=== PATIENT | male | born 1950 | race Caucasian/White ===

== ENCOUNTER 2020-05-11 20:23 | Observation (INO) | payer MEDICARE, OTHER ==
[2020-05-11 20:57] LABS: #Basophils 0.1 thou/uL (0.0-0.2); #Eosinphils 0.1 thou/uL (0.0-0.7); #Monocytes 0.7 thou/uL (0.11-0.59); #Neutrophils 5.2 thou/uL (1.40-6.50); %Basophils 0.8 % (0.0-1.0); %Eosinophils 1.5 % (0.0-10.0); %Monocytes 8.9 % (0.0-10.0); %Neutrophils 63.8 % (42.0-75.0); Hemoglobin 14.3 g/dL (14.0-18.0); Mean Corpuscular HGB CONC 32.4 g/dL (32.0-36.0); Mean Corpuscular Hemoglobin 34.1 pg (27.0-31.0); Mean Platelet Volume 6.9 fL (7.4-10.4); Platelet Count 238 thou/uL (130-400); RBC Distribution Width 11.3 % (11.5-14.5); Red Blood Cell (RBC) Count 4.18 mill/uL (4.70-6.10); White Blood Cell (WBC) Count 8.1 thou/uL (4.8-10.8)
--- NOTE | 2020-05-11 20:57 | RAD ---
PORTABLE CHEST: Date: 05/11/2020 HISTORY: Chest pain. COMPARISON: Chest film from 2012. FINDINGS: The lungs appear clear. No infiltrate. Vascular markings normal. Heart size within normal range. IMPRESSION: No acute lung process. POS: AGW
[2020-05-11 21:17] LABS: ALT (SGPT) 20 U/L (8-55); AST (SGOT) 23 U/L (5-34); Albumin 3.9 g/dL (3.4-4.8); Alkaline Phosphatase 64 U/L (40-110); Anion Gap 14 mmol/L (10-20); BUN (Urea Nitrogen) 13 mg/dL (8.4-25.7); Bilirubin, Total 0.5 mg/dL (0.2-1.2); CK (CPK) 138 U/L (30-200); Calc. Creatinine Clearance 0 mL/min (70-130); Calcium 8.8 mg/dL (7.8-10.44); Carbon Dioxide 25 mmol/L (23-31); Chloride 102 mmol/L (98-107); Estimated GFR-MDRD 83; Glucose 131 mg/dL (80-115); Potassium 3.8 mmol/L (3.5-5.1); Protein, Total 6.9 g/dL (5.8-8.1); Sodium 137 mmol/L (136-145)
[2020-05-11 21:44] LABS: CKMB 3.3 ng/mL (0-6.6)
[2020-05-12 00:22] VITALS: BMI 27.1
[2020-05-12] MEDS ORDERED: Nitroglycerin 0.4 MG TAB (25 Tab Bottle) SL PRN (01:24)
[2020-05-12] MEDS ORDERED: Acetaminophen 650 MG Suppository PR PRN (01:26)
[2020-05-12] MEDS ORDERED: Acetaminophen 325 MG TAB PO PRN (01:26)
[2020-05-12] MEDS ORDERED: Lidocaine 2% Viscous Solution 10 ML, Aluminum & Magnesium Hydroxide 30 ML SSW SCH (01:30)
--- NOTE | 2020-05-12 01:54 | PDOC.HHP ---
Hospitalist HPI - History of Present Illness History of Present Illness: ADMISSION DATE: 05/12/2020 TIME OF ASSESSMENT: 100 PRIMARY CARE PHYSICIAN: None CHIEF COMPLAINT: Chest pain HPI: Patient presents to the emergency department with complaints of chest pain that started yesterday evening around 5:30 PM while he was outside throwing a Frisbee with his daughter. Reports being fairly active at baseline and has n ever experienced any exertional chest pain in the past nor chest pain with rest. He has been under a lot of stress with work but has been working from home for the last 9 months. He has not been exercising as much as he used to since being in quarantine at home. Reports the pain was in the center of his chest described as a throbbing pain which was a 4 out of 10 in severity and lasted approximately 2 hours. It was nonradiating. Denies any associated nausea vomiting or diaphoresis. Shortness of breath, cough or hemoptysis. The pain had subsided after he was given nitroglycerin by EMS. Denies having any history of [place]. He had a stress test several years ago which was normal. At present he reports having mild discomfort which he rates a 2 out of 10 in severity. States he noticed having chest pain whenever he would walk to the bathroom while he was in the ER but it would ease once he would rest. Has not had this in the past. ROS: Patient denies having any recent fevers chills or sweats. No abdominal pain nausea or vomiting. No lower extremity swelling or calf tenderness. Has not had any trauma or injuries. No heavy lifting. No long car rides or flights. All other review of systems apart from what is mentioned above are negative. ED COURSE: In the emergency department he had an EKG done that showed a normal sinus rhythm with a heart rate of 70. No ST changes or T wave abnormalities present. He had a chest x-ray done which was unremarkable. Laboratory studies were notable for an elevated troponin of 0.091. White count 8.1, hemoglobin 14.3, platelets 238, neutrophils 63.8%. Sodium 137, BUN 13, creatinine 0.91, GFR 83, potassium 3.8, glucose 131, calcium 8.8, LFTs unremarkable. BNP 29.6. He was given 324 mg of aspirin by EMS. No further medications given in the emergency department. PAST MEDICAL HISTORY: 1. Hypertension 2. Anxiety 3. Hyperlipidemia 4. History of glomerular nephritis at age 11. PAST SURGICAL HISTORY: None SOCIAL HISTORY: Patient denies any tobacco use or alcohol consumption. He reports drinking 2 glasses of red wine every night. FAMILY HISTORY: Noncontributory. ALLERGIES: Ibuprofen CURRENT MEDICATIONS: 1. Metoprolol 2. Co-Q10 3. Aspirin - Exam General Appearance: NAD, awake alert General - other findings: VS: Temp 97.7, HR 72, BP 170/94, RR 18, O2 sat 96% on room air Eye: PERRL, anicteric sclera ENT: normocephalic atraumatic, no oropharyngeal lesions, moist mucosa Neck: supple, no lymphadenopathy Heart: RRR, no murmur, no gallops, no rubs, normal peripheral pulses Respiratory: CTAB, no wheezes, no rales, no ronchi, normal chest expansion, no tachypnea Respiratory - other findings: no tenderness to palpation of chest wall Gastrointestinal: soft, non-tender, non-distended, normal bowel sounds, no guarding, no rigidity Extremities: no cyanosis, no clubbing, no edema Skin: normal turgor, no lesions, no rashes Neurological: cranial nerve grossly intact, normal sensation to touch, no weakness, no focal deficits Musculoskeletal: normal tone, normal strength, no muscle wasting Psychiatric: normal affect, normal behavior, A&O x 3 Hospitalist Results - Labs Result Diagrams: 05/11/20 20:46 05/11/20 20:46 Lab results: WBC 8.1 thou/uL (4.8-10.8) 05/11/20 20:46 Hgb 14.3 g/dL (14.0-18.0) 05/11/20 20:46 Hct 44.1 % (42.0-52.0) 05/11/20 20:46 MCV 106.0 fL (78.0-98.0) H 05/11/20 20:46 Plt Count 238 thou/uL (130-400) 05/11/20 20:46 Neutrophils % 63.8 % (42.0-75.0) 05/11/20 20:46 Sodium 137 mmol/L (136-145) 05/11/20 20:46 Potassium 3.8 mmol/L (3.5-5.1) 05/11/20 20:46 Chloride 102 mmol/L (98-107) 05/11/20 20:46 Carbon Dioxide 25 mmol/L (23-31) 05/11/20 20:46 BUN 13 mg/dL (8.4-25.7) 05/11/20 20:46 Creatinine 0.91 mg/dL (0.7-1.3) 05/11/20 20:46 Glucose 131 mg/dL (80-115) H 05/11/20 20:46 Calcium 8.8 mg/dL (7.8-10.44) 05/11/20 20:46 Total Bilirubin 0.5 mg/dL (0.2-1.2) 05/11/20 20:46 AST 23 U/L (5-34) 05/11/20 20:46 ALT 20 U/L (8-55) 05/11/20 20:46 Alkaline Phosphatase 64 U/L (40-110) 05/11/20 20:46 Creatine Kinase 138 U/L (30-200) 05/11/20 20:46 CK-MB (CK-2) 3.3 ng/mL (0-6.6) 05/11/20 20:46 Troponin I 0.091 ng/mL (< 0.028) H 05/11/20 20:46 B-Natriuretic Peptide 29.6 pg/mL (0-100) 05/11/20 20:46 Serum Total Protein 6.9 g/dL (5.8-8.1) 05/11/20 20:46 Albumin 3.9 g/dL (3.4-4.8) 05/11/20 20:46 - Radiology Interpretation Chest x-ray Status: report reviewed by nh Hospitalist H&P A/P - Problem (1) Chest pain Code(s): R07.9 - CHEST PAIN, UNSPECIFIED Status: Acute Assessment and Plan: Elevated troponin, continue to trend Continue cardiac monitoring Nitro prn for pain Cardiology consult Keep NPO Lipid panel with AM labs Continue statin and Aspirin Check TSH and d-dimer (2) Hypertension Code(s): I10 - ESSENTIAL (PRIMARY) HYPERTENSION Status: Chronic Assessment and Plan: Monitor BP Resume home meds as appropriate once verified. (3) Hyperlipidemia Code(s): E78.5 - HYPERLIPIDEMIA, UNSPECIFIED Status: Chronic Assessment and Plan: Check lipid panel with AM labs. (4) Anxiety Code(s): F41.9 - ANXIETY DISORDER, UNSPECIFIED Status: Chronic Assessment and Plan: Xanax 0.5 mg PO x 1 - Plan Plan: FULL CODE STATUS DVT Prophylaxis: patient is ambulatory GI Prophylaxis: Famotidine 20 mg PO BID Case discussed with Dr. Forman who agrees with plan as above.
[2020-05-12] MEDS: Sodium Chloride 0.9% 1,000 ML IV SCH ×2 (02:02→17:02)
[2020-05-12 04:28] LABS: #Basophils 0.1 thou/uL (0.0-0.2); #Eosinphils 0.1 thou/uL (0.0-0.7); #Monocytes 0.7 thou/uL (0.11-0.59); #Neutrophils 4.7 thou/uL (1.40-6.50); %Basophils 0.8 % (0.0-1.0); %Eosinophils 0.9 % (0.0-10.0); %Lymphocytes 26.9 % (21.0-51.0); %Monocytes 8.8 % (0.0-10.0); %Neutrophils 62.7 % (42.0-75.0); Hemoglobin 14.9 g/dL (14.0-18.0); Mean Corpuscular HGB CONC 34.7 g/dL (32.0-36.0); Mean Corpuscular Hemoglobin 36.6 pg (27.0-31.0); Platelet Count 216 thou/uL (130-400); RBC Distribution Width 11.3 % (11.5-14.5); Red Blood Cell (RBC) Count 4.08 mill/uL (4.70-6.10); White Blood Cell (WBC) Count 7.5 thou/uL (4.8-10.8)
[2020-05-12 04:51] LABS: Anion Gap 10 mmol/L (10-20); BUN (Urea Nitrogen) 9 mg/dL (8.4-25.7); Calc. Creatinine Clearance 108 mL/min (70-130); Calcium 9.2 mg/dL (7.8-10.44); Carbon Dioxide 29 mmol/L (23-31); Cardiac Risk 4.1 (Less than 4.5); Chloride 104 mmol/L (98-107); Cholesterol 203 mg/dl (< 200 Desired); Estimated GFR-MDRD 90; Glucose 122 mg/dL (80-115); HDL Cholesterol 50 mg/dL (>60 Neg Risk); LDL Cholesterol, Calculated 136 mg/dL; Potassium 3.8 mmol/L (3.5-5.1); Sodium 139 mmol/L (136-145); Triglycerides 86 mg/dL (Less than 150)
[2020-05-12 05:10] LABS: CKMB 3.8 ng/mL (0-6.6)
[2020-05-12] MEDS ORDERED: Aspirin 325 mg Enteric Coated Tablet PO SCH (09:00)
[2020-05-12] MEDS ORDERED: Famotidine 20 MG TAB PO SCH (09:00)
[2020-05-12 13:17] VITALS: TEMP 98
--- NOTE | 2020-05-12 13:45 | NM ---
Radionucleotide stress and rest myocardial perfusion scan with CT attenuation correction and SPECT im aging Left ventricular wall motion evaluation and ejection fraction HISTORY: Chest pain. FINDINGS: [facility] protocol. Total test time 7:00. Maximum heart rate 139 bpm. Homogeneous uptake of radiotracer throughout the left ventricular myocardium. No focal perfusion defe ct or reversibility. QGS analysis of gated SPECT images shows no focal wall motion abnormality. LHR 39%. T.i.d. 0.96. QGS analysis of gated SPECT images shows no focal wall motion abnormalities. Ejection fraction calcul ated at greater than 80%. IMPRESSION : No evidence of ischemia. Normal LVEF.
[2020-05-12 16:15] VITALS: BP 137/83
--- NOTE | 2020-05-12 16:33 | PDOC.DS.DS ---
Provider - Provider Date of Admission: 05/11/20 21:56 Admitting Provider: Korina Lees MD Primary Care Physician: NO PCP PROVIDER Course - Hospital Course Hospital Course: Patient presented with chest pain - please see the history and physical for more details. Troponin I 0.08 and 093. He went through a nuclear medicine stress test and it showed no evidence of ischemia and normal left ventricular ejection fraction. Is calculated around 80%. LDL is 136. Patient does not seem to have a home regimen of Lipitor. prescription given for the same. He does take aspirin every other day. Recommended to take it daily. He is cleared by the cardiology to be discharged home today. Resuscitation Status: 05/12/20 01:26 Resuscitation Status Routine Co-Sign Provider: Resuscitation Status: FULL: Full Resuscitation - Labs Lab Results: 05/12/20 04:12 05/12/20 04:12 Abnormal Lab Results - Last 48 hrs 05/11/20 20:46: Troponin I 0.091 H 05/11/20 20:46: RBC 4.18 L, MCV 106.0 H, MCH 34.1 H, RDW 11.3 L, MPV 6.9 L, Monocytes # 0.7 H 05/12/20 00:53: Troponin I 0.080 H 05/12/20 04:12: Troponin I 0.093 H 05/12/20 04:12: Cholesterol 203 H 05/12/20 04:12: RBC 4.08 L, MCV 106.0 H, MCH 36.6 H, RDW 11.3 L, MPV 7.0 L, Monocytes # 0.7 H - Physical Exam Vitals: Vital Signs (12 hours) Temp Pulse Resp BP Pulse Ox 05/12/20 16:00 98 F 85 16 137/83 98 05/12/20 13:16 98 F 80 16 136/79 97 05/12/20 07:29 98.3 F 91 16 139/81 98 Weight Admit Weight 201 lb Weight 201 lb Physical Exam: The patient was seen and examined on the day of discharge. Plan - Discharge Medications Prescriptions: Aspirin [Adult Low Dose Aspirin EC] 81 mg PO DAILY 30 Days #30 tablet. Atorvastatin Calcium [Lipitor] 40 mg PO DAILY 30 Days #30 tab Home Medications: Medication Instructions Recorded Confirmed Type Aspirin [Adult Low Dose Aspirin EC] 81 mg PO DAILY 30 Days #30 11/17/20 Rx tablet. Atorvastatin Calcium [Lipitor] 40 mg PO DAILY 30 Days #30 tab 05/12/20 Rx Metoprolol Succinate 100 mg PO DAILY 05/12/20 05/12/20 History Allergies: ibuprofen Allergy (Unknown, Verified 05/12/20 00:13) - Discharge Instructions Activity:: Activity as Tolerated Nourishment:: Regular Diet - Follow up Plan Referrals: PROVIDER,NO PCP [Primary Care Provider] - Disposition: HOME Quality - Care Measures CORE MEASURES:: N/A
--- NOTE | 2020-05-16 15:30 | EKG ---
Test Reason : Blood Pressure : / mmHG Vent. Rate : 071 BPM Atrial Rate : 071 BPM P-R Int : 178 ms QRS Dur : 102 ms QT Int : 416 ms P-R-T Axes : 096 -27 056 degrees QTc Int : 452 ms Normal sinus rhythm Incomplete right bundle branch block Septal infarct , age undetermined Abnormal ECG Confirmed by LULU VILLAGRAN, ANITA Manzo ([id number]), editor publications SHANKIA MCFADDEN ([id number]) on 05/16/2020 3:30:29 PM Referred By: Confirmed By:ANITA LAWSON MD
== END 2020-05-12 18:23 | disposition home or self-care (01) ==
LOC: ERS 20:23 → ERHOLD 21:56 → 2NO 23:57
PROVIDERS: ADMIT Internal Medicine; ATTEND Internal Medicine
DX: R07.89 Other chest pain (principal); I10 Essential (primary) hypertension; F41.9 Anxiety disorder, unspecified; E78.5 Hyperlipidemia, unspecified; Z79.82 Long term (current) use of aspirin; Z79.899 Other long term (current) drug therapy; Z88.6 Allergy status to analgesic agent
CPT/HCPCS: 71045; 78452; 80048; 80053; 80061; 82550; 82553 ×2; 83735; 83880; 84443; 84484 ×3; 85025 ×2; 85379; 93005; 93017; 94760; 99285; A9500; 36415; G0378

== ENCOUNTER 2020-05-14 03:50 | Observation (INO) | payer MEDICARE, OTHER ==
[2020-05-14 04:24] LABS: #Basophils 0.1 thou/uL (0.0-0.2); #Eosinphils 0.2 thou/uL (0.0-0.7); #Lymphocytes 2.2 thou/uL (1.20-3.40); #Monocytes 0.8 thou/uL (0.11-0.59); #Neutrophils 4.7 thou/uL (1.40-6.50); %Basophils 0.9 % (0.0-1.0); %Eosinophils 2.1 % (0.0-10.0); %Lymphocytes 27.4 % (21.0-51.0); %Monocytes 9.8 % (0.0-10.0); %Neutrophils 59.9 % (42.0-75.0); Hemoglobin 14.9 g/dL (14.0-18.0); Mean Corpuscular Hemoglobin 37.3 pg (27.0-31.0); Mean Platelet Volume 6.9 fL (7.4-10.4); Platelet Count 213 thou/uL (130-400); RBC Distribution Width 11.3 % (11.5-14.5); Red Blood Cell (RBC) Count 3.99 mill/uL (4.70-6.10); White Blood Cell (WBC) Count 7.9 thou/uL (4.8-10.8)
[2020-05-14 04:45] LABS: ALT (SGPT) 19 U/L (8-55); AST (SGOT) 21 U/L (5-34); Alkaline Phosphatase 57 U/L (40-110); Anion Gap 13 mmol/L (10-20); BUN (Urea Nitrogen) 12 mg/dL (8.4-25.7); Bilirubin, Total 0.9 mg/dL (0.2-1.2); CK (CPK) 177 U/L (30-200); Calc. Creatinine Clearance 0 mL/min (70-130); Calcium 9.2 mg/dL (7.8-10.44); Carbon Dioxide 27 mmol/L (23-31); Chloride 102 mmol/L (98-107); Estimated GFR-MDRD 89; Globulin 2.8 g/dL (2.4-3.5); Glucose 112 mg/dL (80-115); Potassium 3.6 mmol/L (3.5-5.1); Protein, Total 6.8 g/dL (5.8-8.1); Sodium 138 mmol/L (136-145)
[2020-05-14 05:07] LABS: CKMB 2.8 ng/mL (0-6.6)
[2020-05-14] MEDS ORDERED: Nitroglycerin 0.4 MG TAB (25 Tab Bottle) SL PRN (05:36)
[2020-05-14] MEDS ORDERED: Enoxaparin Sodium 40 MG/0.4 ML SYRINGE SC SCH (06:00)
--- NOTE | 2020-05-14 06:00 | PDOC.BPN ---
- Brief Progress Note [id number] HP dictated
[2020-05-14] MEDS ORDERED: Nitroglycerin 0.4 MG TAB 1 EACH ONE (06:17)
[2020-05-14 07:40] LABS: Troponin I 0.081 ng/mL (< 0.028)
--- NOTE | 2020-05-14 07:57 | HP ---
CHIEF COMPLAINT: Chest pain. HISTORY OF PRESENT ILLNESS: Mr. Morel is a 69-year-old male with past medical history of hypertension, who was just discharged from the hospital after being admitted for chest pain, presents back to the emergency room with chest pain, pressure in nature. As per patient, he was in the hospital for chest pain and had workup including stress test, which was negative. He went home, he did exercise and he was okay, but later after sitting down, he started having chest pain and pressure. He was given sublingual nitroglycerin x3 by EMS with relief of the pain. Denies fevers, chills, nausea, vomiting. The patient is being admitted to the hospital for further management. PAST MEDICAL HISTORY: Hypertension. PAST SURGICAL HISTORY: No significant past surgical history. PAST PSYCHIATRIC HISTORY: Anxiety. SOCIAL HISTORY: The patient drinks wine daily. Denies drug use. No smoking history. FAMILY HISTORY: Reviewed. HOME MEDICATIONS: See home medication reconciliation form for these medications. ALLERGIES: ALLERGIC TO IBUPROFEN. REVIEW OF SYSTEMS: Review of 14 systems negative except what is mentioned in history of present illness. PHYSICAL EXAMINATION: GENERAL: The patient is awake, alert, in mild distress. VITAL SIGNS: Blood pressure is 134/84, pulse is 71, respiratory rate is 20, temperature 97.9, oxygen saturations 96% on room air. HEAD AND NECK: Normocephalic, atraumatic. NECK: Supple. No JVD. CHEST: Fair bilateral air entry. HEART: S1, S2. Regular. ABDOMEN: Soft, nontender. Bowel sounds present. NEUROLOGIC: Awake, alert, oriented x3. PSYCHIATRIC: Normal mood. EXTREMITIES: No clubbing or cyanosis. SKIN: No apparent rash. LABORATORY DATA: Troponin is 0.08. WBC is 7.9, hemoglobin 14.9, platelets 213. ASSESSMENT: 1. Acute coronary syndrome?. The patient had recurrent chest pain, just discharged for chest pain and had unremarkable workup. 2. Hypertension. 3. History of anxiety. PLAN: 1. Admit. 2. Tele monitor. 3. Aspirin. 4. Give the patient one dose of Lovenox now, acute coronary syndrome cannot be ruled out. 5. Consult the patient's children's aide for evaluation and further recommendations. 6. We will continue trending troponin. 7. Reconcile home medications. 8. DVT prophylaxis as appropriate. 9. Expected length of stay, at least 1 midnight, if patient is stable and cleared by cardiology. Job ID: [id number]
--- NOTE | 2020-05-14 08:22 | RAD ---
EXAM: Portable chest PROVIDED CLINICAL HISTORY: Chest pain COMPARISON: 05/11/2020 FINDINGS: Cardiac and mediastinal silhouette is within normal limits. No focal consolidation, pleural fluid or pneumothorax evident. Chronic obstructive changes are redemonstrated. IMPRESSION: No evidence for an acute cardiopulmonary process.
[2020-05-14] MEDS ORDERED: Enoxaparin Sodium 100 MG/ML SYRINGE SC SCH (09:00)
[2020-05-14] MEDS ORDERED: Aspirin 325 MG TAB ONE (10:00)
[2020-05-14] MEDS ORDERED: Pantoprazole 40 MG VIAL ONE (10:01)
[2020-05-14] MEDS ORDERED: Enoxaparin Sodium 100 MG/ML SYRINGE ONE (10:01)
[2020-05-14] MEDS: Aspirin 325 mg Enteric Coated Tablet PO SCH (10:33)
[2020-05-14] MEDS: Pantoprazole 40 MG VIAL IVP SCH ×2 (10:33→20:58)
[2020-05-14 10:39] LABS: Troponin I 0.088 ng/mL (< 0.028)
[2020-05-14] MEDS ORDERED: Metoprolol Tartrate 50 MG TAB PO SCH (15:15)
[2020-05-14] MEDS ORDERED: Metoprolol Tartrate 50 MG TAB ONE (15:23)
[2020-05-14 16:25] VITALS: BMI 27.1
[2020-05-14] MEDS: Dextrose 5 % And 0.9 % NaCl 1,000 ML IV SCH (17:08)
[2020-05-14 17:41] LABS: SARS-CoV-2 MS2 Positive; SARS-CoV-2 N Gene Negative; SARS-CoV-2 S Gene Negative; SARS-CoV-2 by NAA Not Detected (NotDetected); SARS-CoV-2 orf1ab Negative
[2020-05-14] MEDS ORDERED: Communication Order-Pharmacy FS SCH (18:45)
[2020-05-15] MEDS ORDERED: Acetaminophen 325 MG TAB PO PRN (00:13)
--- NOTE | 2020-05-15 00:13 | CON ---
DATE OF CONSULTATION: HISTORY OF PRESENT ILLNESS: Abdoulaye Morel is a 69-year-old white male, who I have been following since June 2006. In 2005, he was hospitalized at [facility] for chest discomfort and exercised 9 minutes on treadmill, but did develop ventricular bigeminy. Cardiolite revealed no evidence of ischemia or scar. His chest discomfort seemed to improve with addition of a proton pump inhibitor for presumed GERD. He is continued to be followed in the office for his hypertension and hypercholesterolemia. Multiple times, he has been recommended that he be on a statin medicine, especially after he had a transient ischemic attack and was started on aspirin. However, he has continued to decline starting on a statin. He was admitted here on May 11 and cholesterol was 203, triglycerides 86, HDL 50, and LDL 136. He was sent home on atorvastatin 40, but he states he has not picked up the prescription yet. He was admitted for chest discomfort and underwent Cardiolite treadmill testing, exercised for 7 minutes to a heart rate of 139 per minute with no ST-segment changes. Cardiolite was normal with ejection fraction of greater than 80%. He was feeling well on his discharge; however, he returned again early this morning complaining of chest discomfort that was somewhat sharper in nature and at times, pleuritic that lasted approximately 5 hours. He has always had during both of these admissions borderline elevated troponin I's. PAST MEDICAL HISTORY: Hypertension. Hypercholesterolemia with declining statins in the past. No history of diabetes. He had a transient ischemic attack in July 2015 and was placed on aspirin. MEDICATIONS: 1. Atorvastatin 40 mg daily, which he has not started yet. 2. Aspirin 81 daily. 3. CoQ10. 4. Metoprolol 100 ER daily. SOCIAL HISTORY: He does not smoke. He does drink wine. FAMILY HISTORY: Mother had myocardial infarction. REVIEW OF SYSTEMS: A 10-point review of systems is otherwise unremarkable. PHYSICAL EXAMINATION: VITAL SIGNS: Blood pressure 136/85 and pulse of 74. HEENT: PERRL. NECK: Supple. CHEST: Clear. CARDIAC: S1 and S2 normal without any S3, S4, or murmurs. Carotid upstrokes normal without bruits. ABDOMEN: Normal bowel sounds without tenderness or organomegaly. EXTREMITIES: Revealed no clubbing, cyanosis, or edema. NEUROLOGIC: Grossly intact. LABORATORY DATA: EKG reveals sinus arrhythmia, but otherwise unremarkable. Hemoglobin 14.9, hematocrit 42.6, white count 7900, and platelets 213,000. Sodium 138, potassium 3.6, chloride 102, carbon dioxide 27, BUN 12, and creatinine 0.86. Troponin I is up to 0.088. During last admission, cholesterol was 203, triglycerides 86, HDL 50, and LDL 136. COVID is negative. IMPRESSION: 1. Atypical chest discomfort, which is pleuritic in nature and stabbing at times that lasted for approximately 5 hours without significant increase in troponin I. He also has had a recent negative Cardiolite treadmill, exercised for 7 minutes. However, this is his second admission in less than 4 or 5 days for chest discomfort. 2. Hypertension, usually under good control. 3. Hypercholesterolemia with the patient never deciding to take statin medications. 4. Positive family history. PLAN: The situation was discussed at length with Mr. Morel. With second admission over four or five days, it is recommended he undergo cardiac catheterization despite the normal Cardiolite treadmill. Risks of catheterization were discussed including , myocardial infarction, dye reaction, vascular injury, CVA, transfusion, limb loss, renal loss, etc. Also risk of intervention with PTCA and stent placement were discussed including , myocardial infarction, emergent CABG, restenosis, stent thrombosis, vessel perforation, etc. He has never had history of gastrointestinal bleeding and has never had a stroke. He does not have any upcoming surgical procedures and drug-eluting stent will be placed if needed. Job ID: [id number]
[2020-05-15] MEDS: Aspirin 325 mg Enteric Coated Tablet PO SCH (05:10)
[2020-05-15] MEDS: Sodium Chloride 0.9% 1,000 ML IV SCH ×2 (05:10→09:22)
[2020-05-15] MEDS: Dextrose 5 % And 0.9 % NaCl 1,000 ML IV SCH (05:15)
[2020-05-15] MEDS ORDERED: Midazolam HCl 2 mg/2 ml Vial ONE (08:27)
[2020-05-15] MEDS ORDERED: Heparin 10,000 UNITS/ 10 ML VIAL ONE (08:28)
[2020-05-15] MEDS ORDERED: Fentanyl 100 MCG/2 ML VIAL ONE (08:28)
[2020-05-15] MEDS ORDERED: Atorvastatin Calcium 40 MG TAB PO SCH (09:00)
[2020-05-15] MEDS ORDERED: Protamine Sulfate 50 MG/5 ML VIAL ONE (09:02)
[2020-05-15] MEDS ORDERED: Nitroglycerin 0.4 MG TAB (25 Tab Bottle) SL PRN (09:35)
[2020-05-15] MEDS ORDERED: Sodium Chloride 0.9% 200 ML IV PRN (09:35)
[2020-05-15] MEDS ORDERED: Acetaminophen/Codeine 30-300mg Tablet PO PRN ×2 (09:35)
[2020-05-15] MEDS ORDERED: Sodium Chloride 0.9% 1,000 ML IV SCH (09:36)
[2020-05-15] MEDS: Pantoprazole 40 MG VIAL IVP SCH (10:19)
[2020-05-15] MEDS ORDERED: Iopamidol 370 76% 100 ML VIAL ONE (14:24)
[2020-05-15 16:03] VITALS: BP 118/75; TEMP 97.7
[2020-05-15] MEDS ORDERED: FLU VACC QS2020-21(65YR UP)/PF 240 MCG/0.7 ML SYRINGE IM ONE (16:45)
--- NOTE | 2020-05-16 16:17 | EKG ---
Test Reason : Blood Pressure : / mmHG Vent. Rate : 062 BPM Atrial Rate : 062 BPM P-R Int : 170 ms QRS Dur : 098 ms QT Int : 420 ms P-R-T Axes : 101 001 059 degrees QTc Int : 426 ms Normal sinus rhythm with sinus arrhythmia Normal ECG Confirmed by GAVINO VARGAS M.D. ([id number]), medical transcription editor SHANIKA MCFADDEN ([id number]) on 05/16/2020 4:17:39 PM Referred By: Confirmed By:GAVINO VARGAS M.D.
--- NOTE | 2020-05-16 17:45 | DIS ---
DATE OF ADMISSION: 05/14/2020 DATE OF DISCHARGE: 05/15/2020 DISCHARGE DISPOSITION: To home. PRIMARY DISCHARGE DIAGNOSIS: Chest pain is noncardiac with mild coronary artery disease. SECONDARY DISCHARGE DIAGNOSES: Hypertension and anxiety disorder. PROCEDURES DONE DURING HOSPITALIZATION: Coronary angiogram done by Dr. Elkins on 05/15/2020 showed mild coronary artery disease. Good ventricular function. He had 20% stenosis left main, 20% stenosis of proximal LAD. Left circumflex and RCA were normal. H and H 14 and 42, platelet count 213. BUN 12, creatinine 0.86. COVID-19 PCR was not detected on 05/14/2020. DISCHARGE MEDICATIONS: 1. Metoprolol succinate extended release 100 mg p.o. daily. 2. Aspirin 81 mg p.o. daily. 3. Lipitor 40 mg p.o. daily. 4. Protonix 40 mg p.o. daily. ALLERGIES: TO MOTRIN. DISCHARGE PLAN: The patient to follow up with his primary care physician in 1 week. BRIEF COURSE DURING HOSPITALIZATION: The patient initially came in with complaints of chest pain. He was discharged after having had a stress test on the , which was negative. In view of recurrent chest pain, the patient was placed under observation on telemetry. He has had consultation with Dr. Elkins for Cardiology. He has had coronary angiogram done which showed mild 20% stenosis in the left main and LAD. There is no flow-limiting disease. He was counseled with regard to medication compliance. He is cleared for discharge by Dr. Elkins. He has remained hemodynamically stable prior to discharge. Please note I have seen and examined patient on the day of discharge. Job ID: [id number] MTDD
== END 2020-05-15 16:48 | disposition home or self-care (01) ==
LOC: ERS 03:50 → ERHOLD 05:44 → 2NO 05:44
PROVIDERS: ADMIT Internal Medicine; ATTEND Internal Medicine
PROC: 4A023N7 Measurement of Cardiac Sampling and Pressure, Left Heart, Percutaneous Approach (ICD-10-PCS; principal; 2020-05-15)
PROC: B2111ZZ Fluoroscopy of Multiple Coronary Arteries using Low Osmolar Contrast (ICD-10-PCS; 2020-05-15)
DX: I25.10 Atherosclerotic heart disease of native coronary artery without angina pectoris (principal); R07.89 Other chest pain; I10 Essential (primary) hypertension; F41.9 Anxiety disorder, unspecified; E78.00 Pure hypercholesterolemia, unspecified; Z86.73 Personal history of transient ischemic attack (TIA), and cerebral infarction without residual deficits; Z79.82 Long term (current) use of aspirin; Z79.899 Other long term (current) drug therapy; Z88.6 Allergy status to analgesic agent; Z20.828 Contact with and (suspected) exposure to other viral communicable diseases
CPT/HCPCS: 71045; 80053; 82550; 82553; 84484 ×2; 85025; 85347; 93005; 93458; 94760; 96372; 96374; 96376 ×2; 99285; G0378 ×3; U0003; 36415; 87635; 99152; 99153; C9113; J1644; J1650; J2250; J2720; J3010; Q9967